=== PATIENT | female | born 1990 | race African-American/Black ===

== ENCOUNTER 2019-04-30 00:35 | Emergency (ER) | payer OTHER, SELFPAY ==
[2019-04-30 00:40] VITALS: BP 89/65; PULSE 68; RESP 18; TEMP 36.4; O2SAT 97
[2019-04-30] MEDS: POLYMY B/TRIMETH OPHTH PREPACK 1 BOTTLE MISC (01:28)
--- NOTE | 2019-04-30 07:00 | ED.EYEPROB ---
HPI - Eye Problem General Chief complaint: Eye Problems Stated complaint: Thinks she has pink eye watery itching Time Seen by Provider: 04/30/19 00:40 Source: patient Mode of arrival: ambulatory Limitations: no limitations History of Present Illness HPI Narrative: 28F nonsmoker without medical problems presents with a day of gradually worsening R eye redness with minimal discharge. She denies any injury or obvious foreign body. She denies blurry vision or eye pain. She has some redness and watering. She feels like she has something in her eye and her thought he saw an eyelash. She's had typical URI symptoms with runny nose, sneezing, and some cough. She does not wear contacts. chief complaint: eye redness Onset (ago): hour(s) Onset description: gradual Duration: constant Location: right eye Eye Symptoms: redness, foreign body sensation, itching and discharge Place: home Mechanism: none Severity: mild Context: recent URI Associated symptoms: rhinorrhea Treatments Prior to Arrival: none Related Data Patient tetanus UTD: Yes Review of Systems Constitutional Denies chills, Denies fever(s), Denies lethargy and Denies weakness Eyes Denies change in vision, Reports eye discharge, Reports irritation and Denies loss of vision ENT Ears, Nose, Mouth, and Throat: Denies change in voice, Reports nasal congestion, Denies neck pain and Denies sore throat Cardiovascular Denies chest pain, Denies irregular heart rhythm, Denies lightheadedness, Denies palpitations, Denies dyspnea, Denies dyspnea on exertion and Denies orthopnea Respiratory Denies cough, Denies dyspnea, Denies dyspnea on exertion and Denies wheezing Gastrointestinal Gastrointestinal: Denies abdominal pain, Denies change in bowel habits, Denies diarrhea, Denies nausea and Denies vomiting Genitourinary Denies hematuria, Denies flank pain, Denies urinary incontinence and Denies urinary urgency Musculoskeletal Denies neck pain Integumentary/Breasts Denies pruritus, Denies erythema, Denies rash and Denies wounds Neurologic Denies confusion, Denies loss of vision and Denies weakness Psychiatric Denies anxiety, Denies confusion, Denies depression, Denies homicidal ideation and Denies suicidal ideation Endocrine Denies palpitations Hematologic/Lymphatic Denies easy bruising Allergic/Immunologic Denies wheezing [facility] Social History Smoking Status: Never smoker Social History Smoking Status: Never smoker Exam Narrative Exam Narrative: GEN: AOx3 and in mild distress EYES: Pupils are equal, round, and reactive to light and accommodation. Extraoccular muscles are intact bilaterally. Visual acuity noted from nursing chart. Minimal R eye injection, minimal exudate. Viewed under rowan lamp, no FB, upper lid everted. Viewed under UV, no dye uptake. CHEST: Lungs are clear to auscultation bilaterally and free of wheezes, rales, or rhonchi. Heart rate is regular rhythm, there are no murmurs, clicks, rubs, or gallops. There is no chest wall tenderness. ABD: Abdomen is soft and nontender. There is no guarding or rebound. Bowel sounds are normal in all 4 quadrants. There is no mass or organomegaly. EXT: Full painless ROM of all extremities with no loss of sensation or strength. SKIN: Warm, pink, and dry. No erythema or rash Initial Vital Signs Initial Vital Signs: Vital Signs Temperature 97.6 F 04/30/19 00:40 Pulse Rate 68 04/30/19 00:40 Respiratory Rate 18 04/30/19 00:40 Blood Pressure 89/65 L 04/30/19 00:40 Pulse Oximetry 97 04/30/19 00:40 Course Orders Ordered: Discontinued Medications Polymyxin/Trimethoprim Sulfate (Polytrim Prepack) 1 bottle MISC SEEINSTR ONE Stop: 04/30/19 01:25 Last Admin: 04/30/19 01:28 Dose: 1 bottle Vital Signs - 8 hr 04/30/19 00:40 Temperature 97.6 F Pulse Rate 68 Respiratory Rate 18 Blood Pressure 89/65 L Pulse Oximetry 97 Discharge Plan Departure Patient Disposition: Home Clinical Impression: Conjunctivitis Qualifiers: Conjunctivitis type: acute Acute conjunctivitis type: unspecified Laterality: right Qualified Code(s): H10.31 - Unspecified acute conjunctivitis, right eye Discharge Date/Time: 04/30/19 01:28 Interventions: ED Discharge Assessment Last Done: 04/30/19 01:28 Instructions: DI for Conjunctivitis Activity Restrictions/Additional Instructions: *You have been diagnosed with [acute conjunctivitis] *What to do: *Take medications as directed *Follow up with your primary care provider in 2-3 days, call for an appointment. Let them know you were seen in the Emergency Department and that we ask that you be seen in follow up *Return to ER if you should have any new, worsening or concerning symptoms Referrals: Vincent Garay MD [Physician] -
== END 2019-04-30 01:28 | disposition home or self-care (01) ==
PROVIDERS: Emergency Provider Emergency Medicine
DX: H10.31 Unspecified acute conjunctivitis, right eye (principal)
CPT/HCPCS: 99283

== ENCOUNTER 2019-05-03 05:23 | Emergency (ER) | payer OTHER, SELFPAY ==
[2019-05-03 05:26] VITALS: BP 115/63; PULSE 72; RESP 18; TEMP 36.4; O2SAT 99; BMI 21.0
--- NOTE | 2019-05-03 05:43 | ED_ITS ---
HPI - Headache General Chief Complaint: Headache Stated Complaint: vomiting/ headache left side Time Seen by Provider: 05/03/19 05:24 Source: patient Mode of arrival: ambulatory Limitations: no limitations History of Present Illness HPI Narrative: Patient is a 28-year-old female. Seen here in the emergency department a couple days ago for right-sided conjunctivitis. She returns today for left-sided headache. She states she has a history of headaches. States this feels like prior headache. Was a gradual onset started last evening and worsened this morning. No fevers. No neck pain. She states she gets headaches like this approximately 2 times a year. States she has not had to come to the emergency department for headache like this in several years. Has taken Tylenol for prior to arrival Related Data Allergies Allergy/AdvReac Type Severity Reaction Status Date / Time amoxicillin Allergy Verified 05/03/19 05:37 Penicillins Allergy Verified 05/03/19 05:37 Review of Systems Constitutional Denies fever(s) and Reports headache(s) Eyes Reports blurry vision and Reports photophobia ENT Ears, Nose, Mouth, and Throat: Denies vertigo, Denies dizziness, Denies facial pain, Reports headache(s) and Denies neck pain Cardiovascular Denies chest pain and Denies dyspnea Respiratory Denies dyspnea Gastrointestinal Gastrointestinal: Denies abdominal pain Genitourinary Denies dysuria Musculoskeletal Denies myalgias, Denies arthralgias and Denies neck pain Integumentary/Breasts Denies lesions and Denies rash Neurologic Denies vertigo, Denies dizziness and Reports headache(s) Hematologic/Lymphatic Denies easy bleeding and Denies easy bruising [facility] Medical History Migraines (Acute) Social History Smoking Status: Never smoker Social History Smoking Status: Never smoker Exam Initial Vital Signs Initial Vital Signs: Vital Signs Temperature 97.6 F 05/03/19 05:26 Pulse Rate 72 05/03/19 05:26 Respiratory Rate 18 05/03/19 05:26 Blood Pressure 115/63 05/03/19 05:26 Pulse Oximetry 99 05/03/19 05:26 Const General: cooperative, well developed, well groomed and No acute distress Orientation: alert, awake and oriented x3 HENMT Head: normal to inspection and normocephalic Ears: hearing grossly normal bilaterally Nose: external nose normal Face and sinus: normal facial exam Eyes Pupils: PERRL EOM: EOM intact bilaterally Resp Effort & Inspection: normal respiratory effort Auscultation: clear to auscultation bilaterally Cardio Rate: regular rate Rhythm: regular rhythm Pulses: radial pulses present GI Inspection: non-distended Palpation: soft Skin Lesions: no lesions Rashes: no rashes Neuro General: alert, awake and oriented x3 Cranial Nerves: CN's II-XI intact bilaterally Cognition: normal cognition Speech: speech normal Motor: muscle tone normal throughout Sensory Exam: no sensory deficits noted Extrem General: normal to inspection and capillary refill normal Psych Appearance: grossly normal and well kempt Scores [facility] [place] coma scale eye opening: Spontaneous [place] coma scale verbal response: Orientated [place] coma scale motor response: Obey commands Andriy coma scale total score: 15 Course Orders Ordered: Discontinued Medications Diphenhydramine HCl (Benadryl) 25 mg IV NOW ONE Stop: 05/03/19 05:45 Last Admin: 05/03/19 05:58 Dose: 25 mg Sodium Chloride (Normal Saline 0.9%) 1,000 mls @ 1,000 mls/hr IV BOLUS ONE Stop: 05/03/19 06:43 Last Infusion: 05/03/19 06:48 Dose: 0 mls/hr Admin: 05/03/19 05:58 Dose: 1,000 mls/hr Metoclopramide HCl (Reglan) 10 mg IV NOW ONE Stop: 05/03/19 05:45 Last Admin: 05/03/19 05:59 Dose: 10 mg Vital Signs - 8 hr 05/03/19 05:26 Temperature 97.6 F Pulse Rate 72 Respiratory Rate 18 Blood Pressure 115/63 Pulse Oximetry 99 MDM - Headache MDM Narrative Medical decision making narrative: Patient reports complete resolution of symptoms after IV medications here in the emergency department. Patient states that she feels like she can go home. Low suspicion for meningitis, low suspicion for ICH. Will hold on any radiologic studies for now. Patient was given return precautions and follow-up instructions. She expressed understanding and agreement with plan. Discharge Plan Departure Patient Disposition: Home Clinical Impression: Migraine Qualifiers: Migraine type: unspecified Status migrainosus presence: without status migrainosus Intractability: not intractable Qualified Code(s): G43.909 - Migraine, unspecified, not intractable, without status migrainosus Instructions: DI for Migraine Activity Restrictions/Additional Instructions: Recommend you contact your primary care doctor tomorrow for a follow-up. You can continue to breast-feed like normal. Return to the emergency department for any new or worsening symptoms
[2019-05-03] MEDS: SODIUM CHLORIDE 0.9% 1,000 ML 1000 ML IV (05:58)
[2019-05-03] MEDS: diphenhydrAMINE 50 MG/ML VIAL 25 MG IV (05:58)
[2019-05-03] MEDS: METOCLOPRAMIDE 10 MG/2 ML INJ IV (05:59)
[2019-05-03 07:00] VITALS: BP 90/51; PULSE 56; RESP 14; O2SAT 97
== END 2019-05-03 07:01 | disposition home or self-care (01) ==
PROVIDERS: Emergency Provider Emergency Medicine
DX: G43.909 Migraine, unspecified, not intractable, without status migrainosus (principal)
CPT/HCPCS: 36591; 96361; 96374; 96375; 99283; 99284; J1200; J2765

== ENCOUNTER 2019-07-11 03:34 | Emergency (ER) | payer OTHER, SELFPAY ==
[2019-07-11 03:46] VITALS: BP 103/62; PULSE 64; RESP 18; TEMP 36.6; O2SAT 98
--- NOTE | 2019-07-11 03:50 | DI.RAD.S_ITS ---
PROCEDURE: XR FOREARM RT 2V INDICATIONS: right arm cought in car door TECHNIQUE: 2 views of the forearm were acquired. COMPARISON: None. FINDINGS: Bones: No fractures or dislocations. No suspicious bony lesions. Soft tissues: No suspicious soft tissue calcifications or masses. IMPRESSION: Right radius and ulna without acute radiographic abnormalities. No significant discrepancies from emergency physician's preliminary interpretation. Dictated by: Baljit Schilling M.D. on 07/11/2019 at 6:42 Approved by: Baljit Schilling M.D. on 07/11/2019 at 6:43
--- NOTE | 2019-07-11 03:57 | ED_ITS ---
HPI - General Adult General Chief complaint: Extremity Injury, Upper Stated complaint: thinks right arm broken, got slammed in car door Time Seen by Provider: 07/11/19 03:38 Source: patient Mode of arrival: ambulatory Limitations: no limitations History of Present Illness HPI narrative: 28-year-old female here for evaluation of right forearm injury. States this evening she had her right forearm shut in a car door. She is concerned about a fracture. Related Data Allergies Allergy/AdvReac Type Severity Reaction Status Date / Time amoxicillin Allergy Verified 05/03/19 05:37 Penicillins Allergy Verified 05/03/19 05:37 Review of Systems Constitutional Constitutional: Denies fever(s) Musculoskeletal Musculoskeletal: Denies tingling Comments: Right forearm injury Integumentary/Breasts Comments: Bruising to the right forearm Neurologic Neurologic: Denies tingling Hematologic/Lymphatic Hematologic/Lymphatic: Denies easy bleeding and Denies easy bruising PFSH Medical History Migraines (Acute) Social History Smoking Status: Never smoker Social History Smoking Status: Never smoker Exam Initial Vital Signs Initial Vital Signs: Vital Signs Temperature 98 F 07/11/19 03:46 Pulse Rate 64 07/11/19 03:46 Respiratory Rate 18 07/11/19 03:46 Blood Pressure 103/62 07/11/19 03:46 Pulse Oximetry 98 07/11/19 03:46 Const General: cooperative, comfortable and well developed Orientation: alert, awake and oriented x3 Cardio Pulses: radial pulses present on the right Skin Other: Bruising on the dorsum of the right forearm midshaft Neuro General: alert and awake Cognition: normal cognition Speech: speech normal Extrem Other: Does have tenderness to palpation with pronation and supination however can flex and extend at the wrist and flex and extend at the elbow. Psych Appearance: grossly normal and well kempt Course Orders Ordered: ED Orders 07/11/19 03:50 XR forearm RT 2V Stat Vital Signs Vital signs: Vital Signs - 8 hr 07/11/19 03:46 Temperature 98 F Pulse Rate 64 Respiratory Rate 18 Blood Pressure 103/62 Pulse Oximetry 98 Medical Decision Making Imaging Data X-ray forearm: Attestation: I personally reviewed and interpreted this imaging study as follows: My impression: No fractures, no dislocations, MDM Narrative Medical decision making narrative: Patient is bruising the right form however no fractures on the x-rays. We discussed treatment. No further workup needed in the emergency department. Discharge Plan Departure Patient Disposition: Home Clinical Impression: Contusion of forearm, right Qualifiers: Encounter type: initial encounter Qualified Code(s): S50.11XA - Contusion of right forearm, initial encounter Instructions: Contusion Activity Restrictions/Additional Instructions: You can take Tylenol and/or ibuprofen for any discomfort. Would recommend that you place ice over your form to help with the swelling. Expect some bruising and discomfort over the next couple days. There were no fractures on the x-r ays. Contact your primary care provider for follow-up.
== END 2019-07-11 04:25 | disposition home or self-care (01) ==
PROVIDERS: Emergency Provider Emergency Medicine
DX: S50.11XA Contusion of right forearm, initial encounter (principal)
CPT/HCPCS: 73090; 99282; 99283

== ENCOUNTER 2019-09-25 07:13 | Emergency (ER) | payer OTHER, SELFPAY ==
[2019-09-25 07:22] VITALS: BP 110/69; PULSE 75; RESP 18; TEMP 36.8; O2SAT 100; BMI 21.0
--- NOTE | 2019-09-25 07:31 | ED.HA ---
HPI - Headache General Chief Complaint: Headache Stated Complaint: CHILLS,MIGRANE,VOMITING Time Seen by Provider: 09/25/19 07:20 Source: patient and old records reviewed Mode of arrival: Family Vehicle Limitations: no limitations History of Present Illness HPI Narrative: Patient is a 28-year-old female with history of migraines presenting with migraine. She said this was started about 3:00 a.m.. She took 2 Tylenol it did seem to help. She vomited once. She is sensitive to light no neuro deficits, she denies any fevers she does feel like she is chilled. This feels like a typical migraine for her. Complaint: migraine Onset (ago): hour(s) (4) Severity: similar to previous episodes Exacerbating factors: light and noise Context: occurred at rest Related Data Previous Rx's Medication Instructions Recorded ondansetron 4 mg PO Q8H PRN #10 tab 09/25/19 Allergies Allergy/AdvReac Type Severity Reaction Status Date / Time amoxicillin Allergy Verified 05/03/19 05:37 Penicillins Allergy Verified 05/03/19 05:37 Review of Systems Review of Systems ROS Unobtainable: All systems reviewed & are unremarkable except as noted in HPI and below Constitutional Constitutional: Denies chills, Denies fever(s), Reports headache(s), Denies lethargy and Denies weakness Eyes Eyes: Denies change in vision, Denies eye discharge, Denies irritation, Denies loss of vision and Reports photophobia ENT Ears, Nose, Mouth, and Throat: Denies change in voice, Reports headache(s), Denies neck pain and Denies sore throat Cardiovascular Cardiovascular: Denies chest pain, Denies irregular heart rhythm, Denies lightheadedness, Denies palpitations, Denies dyspnea, Denies dyspnea on exertion and Denies orthopnea Respiratory Respiratory: Denies cough, Denies dyspnea, Denies dyspnea on exertion and Denies wheezing Gastrointestinal Gastrointestinal: Denies abdominal pain, Denies change in bowel habits, Denies diarrhea, Denies nausea and Denies vomiting Genitourinary Genitourinary: Denies hematuria, Denies flank pain, Denies urinary incontinence and Denies urinary urgency Musculoskeletal Musculoskeletal: Denies neck pain Integumentary/Breasts Skin/Breast: Denies pruritus, Denies erythema, Denies rash and Denies wounds Neurologic Neurologic: Reports headache(s), Denies loss of vision and Denies weakness Endocrine Endocrine: Denies palpitations Allergic/Immunologic Allergic/Immunologic: Denies wheezing Patient History Medical History Migraines (Acute) Social History Smoking Status: Never smoker alcohol intake frequency: 0-2 drinks per day Substance Use Type: does not use Exam Initial Vital Signs Initial Vital Signs: Vital Signs Temperature 98.2 F 09/25/19 07:22 Pulse Rate 75 09/25/19 07:22 Respiratory Rate 18 09/25/19 07:22 Blood Pressure 110/69 09/25/19 07:22 Pulse Oximetry 100 09/25/19 07:22 GENERAL: Alert female covering her face with a pillow appears in pain and in no acute distress. HEENT: Head atraumatic,EOMI, pupils reactive, face symmetric, moist mucous membranes CARDIOVASCULAR: Regular rate and rhythm without murmurs, rubs or gallops. RESPIRATORY: Breath sounds equal bilaterally, no wheezes rales or rhonchi. ABDOMEN: Soft, nontender. Normoactive bowel sounds all 4 quadrants. No guarding or rebound. EXTREMITIES: Normal range of motion, no clubbing or edema. Neurovascularly intact NEUROLOGICAL: Alert and oriented x4.Normal gait and speech. Cranial nerves II through XII grossly intact. SKIN: Warm, dry, no laceration, no petechiae, no rashes or lesions. Course Orders Ordered: Discontinued Medications Ketorolac Tromethamine (Toradol) 30 mg IM NOW ONE Stop: 09/25/19 07:30 Last Admin: 09/25/19 07:42 Dose: 30 mg Documented by: LETITIA Ondansetron HCl (Zofran Odt) 4 mg SL NOW ONE Stop: 09/25/19 07:30 Last Admin: 09/25/19 07:43 Dose: 4 mg Documented by: LETITIA Vital Signs Vital signs: Vital Signs - 8 hr 09/25/19 07:22 09/25/19 08:30 Temperature 98.2 F Pulse Rate 75 64 Respiratory Rate 18 16 Blood Pressure 110/69 Blood Pressure [Left Arm] 101/70 Pulse Oximetry 100 100 MDM - Headache MDM Narrative Medical decision making narrative: Patient was offered IV however she did not want the IV she was agreeable to a shot of Toradol and oral Zofran. Feeling much better after Toradol and Zofran. Tolerating oral fluids feels ready and able to go home. Discharge Plan Departure Patient Disposition: Home Clinical Impression: Headache Qualifiers: Headache type: unspecified Headache chronicity pattern: unspecified pattern Intractability: not intractable Qualified Code(s): R51 - Headache Discharge Date/Time: 09/25/19 09:11 Instructions: DI for Migraine Activity Restrictions/Additional Instructions: *You have been diagnosed with migraine headache *What to do: Rest, increase fluids as tolerated *Continue to take medications as directed Zofran 4 mg every 8 hours if needed for nausea or vomiting Ibuprofen 800 mg every 8 hours if needed for pain do not take until 3:30pm Tylenol 650 mg every 4-6 hours if needed for [id number] pain *Follow up with your primary care provider in 2-3 days *Return to ER if you should have worsening headache blurry vision persistent vomiting weakness or any new, worsening or concerning symptoms Prescriptions: New ondansetron 4 mg tablet,disintegrating 4 mg PO Q8H PRN (Reason: nausea and vomiting) Qty: 10 RF: 0
[2019-09-25] MEDS: KETOROLAC 60 MG/2 ML VIAL 30 MG IM (07:42)
[2019-09-25] MEDS: ONDANSETRON 4 MG ODT SL (07:43)
[2019-09-25 08:30] VITALS: BP 101/70; PULSE 64; RESP 16; O2SAT 100
--- NOTE | 2019-09-25 09:09 | CM.MNRNOTE ---
tolerated oral po challenge. feels great and is ready to be discharged.
== END 2019-09-25 09:11 | disposition home or self-care (01) ==
PROVIDERS: Emergency Provider Emergency Medicine
DX: R51 Headache (principal)
CPT/HCPCS: 96372; 99282; 99283; J1885

== ENCOUNTER 2019-11-01 14:14 | Emergency (ER) | payer OTHER, SELFPAY ==
[2019-11-01 14:25] VITALS: BP 96/61; PULSE 65; RESP 15; TEMP 36.9; O2SAT 99; BMI 21.0
--- NOTE | 2019-11-01 15:02 | ED.DENTAL ---
HPI - Dental/Oral <Enrico SevillaVIANCA - Last Filed: 11/01/19 16:57> General Chief complaint: Dental/Oral Stated complaint: lt bottom tooth/ ear pain Time Seen by Provider: 11/01/19 14:47 Source: patient Mode of arrival: Ambulatory Limitations: no limitations History of Present Illness HPI Narrative: This is a 29-year-old female, nonsmoker, who presents to ED with her significant other and 2 young children with chief complain of left lower toothache for 3 days and left ear pain for 2 days. Patient denies fever, chills, nausea or vomiting. Patient denies drainage from ear or tooth, swelling in her gums or face. 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 She has been taking Tylenol 500 mg about 3 times a day which helps with her pain. Patient reports eating/during increase her pain. Patient denies recent cold symptoms or cough. Last LMP about a year ago and patient is currently breast-feeding and has no concerns for at this time. Related Data Previous Rx's Medication Instructions Recorded ondansetron 4 mg PO Q8H PRN #10 tab 09/25/19 Allergies Allergy/AdvReac Type Severity Reaction Status Date / Time amoxicillin Allergy Verified 05/03/19 05:37 Penicillins Allergy Verified 05/03/19 05:37 Review of Systems <Enrioc SevillaVIANCA - Last Filed: 11/01/19 16:57> Review of Systems Narrative: General: Denies fever, chills, fatigue, malaise, sweats. HEENT: Denies sinus pain, (+) L ear pain, (+) L lower toothache, (-) sore throat, (-)difficulty swallowing. Respiratory: Denies dyspnea, cough, wheezing, hemoptysis, sputum. Cardiovascular: Denies chest pain, palpitations, orthopnea, edema. Gastrointestinal: Denies nausea, vomiting, abdominal pain, diarrhea, constipation, melena. : Denies dysuria, frequency, incontinence, hematuria, urinary retention. Musculoskeletal: Denies weakness, joint pain or bony pain. Skin: Denies rash, skin lesions, or other. Neurologic: Denies weakness, headache, numbness, change in speech, confusion, seizures, incoordination. Psychiatric: No concerning psychosocial issues. 12-point review of systems is negative except for those stated above. Patient History <VIANCA Ramey - Last Filed: 11/01/19 16:57> Medical History Asthma (Acute) Migraines (Acute) Social History Smoking Status: Never smoker Smoking Status: Never smoker alcohol intake frequency: 0-2 drinks per day Substance Use Type: does not use Exam <VIANCA Ramey - Last Filed: 11/01/19 16:57> Narrative Exam Narrative: General appearance: well developed, well nourished, in no acute distress. Head: normocephalic, atraumatic, no scalp lesions, non-tender. ENT: Bilateral auditory canals and tympanic membranes clear. Hearing grossly intact. Nose without bleeding, purulent discharge, septal hematoma or deviation. Turbinate without erythema or swelling. Facial sinuses nontender to palpate. Mucous membrane moist, no mucosal lesion. Throat without erythema, tonsillar hypertrophy or exudate. Uvula in midline, airway patent. Gums without erythema, swelling, discharge or dental caries noted. Neck/Thyroid: neck supple, full range of motion, no visible masses or meningeal signs. No JVD, non-tender without lymphadenopathy. Skin: no suspicious rashes, lesions over visible areas. Warm and dry and appropriate color for ethnicity. Heart: no clubbing, no cyanosis, no edema. S1 and S2 normal. RRR w/o murmurs, clicks, or bruits. Lungs: Breathing even and unlabored. Lung sounds clear to auscultate in all lobes. No stridor. No accessory muscles used. Able to speak in full sentences. Chest: normal shape and expansion. Abdomen: non-obese, non-distended. Neurologic: alert and oriented. Cognitive exam, [employer]UR[employer] and PNS grossly intact on informal exam. Psych: good eye contact, normal affect. Initial Vital Signs Initial Vital Signs: Vital Signs Temperature 98.4 F 11/01/19 14:25 Pulse Rate 65 11/01/19 14:25 Respiratory Rate 15 11/01/19 14:25 Blood Pressure 96/61 11/01/19 14:25 Pulse Oximetry 99 11/01/19 14:25 <Cristina Hernandez DO - Last Filed: 11/01/19 17:54> Initial Vital Signs Initial Vital Signs: Vital Signs Temperature 98.4 F 11/01/19 14:25 Pulse Rate 65 11/01/19 14:25 Respiratory Rate 15 11/01/19 14:25 Blood Pressure 96/61 11/01/19 14:25 Pulse Oximetry 99 11/01/19 14:25 Scores <Enrico ArmandoVIANCA campa - Last Filed: 11/01/19 16:57> GCS [place] coma scale eye opening: Spontaneous [place] coma scale verbal response: Orientated [place] coma scale motor response: Obey commands [place] coma scale total score: 15 Course <Enrico ArmandoVIANCA campa - Last Filed: 11/01/19 16:57> Vital Signs Vital signs: Vital Signs - 8 hr 11/01/19 14:25 Temperature 98.4 F Pulse Rate 65 Respiratory Rate 15 Blood Pressure 96/61 Pulse Oximetry 99 <Cristina Hernandez DO - Last Filed: 11/01/19 17:54> Vital Signs Vital signs: Vital Signs - 8 hr 11/01/19 14:25 Temperature 98.4 F Pulse Rate 65 Respiratory Rate 15 Blood Pressure 96/61 Pulse Oximetry 99 MDM - Dental/Oral <Enrico SevillaVIANCA - Last Filed: 11/01/19 16:57> Differential Diagnosis Differential diagnosis: Likely gingival abscess, dental caries, toothache, dental abscess, fracture of tooth and other (Otitis media) Medical Records Attestation: I reviewed the patient's medical records. [facility] Narrative Medical decision making narrative: This is a 29-year-old female who presents to ED with 2-3 days duration of left lower toothache and ear pain. Patient has been self-medicated Tylenol 500 mg intermittently which helps with pain. Patient denies constitutional symptoms. Patient has a dentist and is aware of work of root canal on affected tooth is needed but due to financial difficulties this has not begun yet. Physical exam is not consistent with otitis media or dental abscess. No dental caries noticed, no lymphadenopathy. Patient was advised to take [id number] Tylenol up to 4000 mg in 24 hour period and add ibuprofen for discomfort. Advised to follow up with dentist and [facility] clinic information in [place] has been provided and to speak with her dentist. Return precautions were discussed with the patient and no antibiotic medication has been prescribed at this time. Patient verbalized understanding and agrees with the treatment plan. Discharge Plan Departure Patient Disposition: Home Clinical Impression: Toothache, Ear pain, left Discharge Date/Time: 11/01/19 15:29 Instructions: DI for Dental Pain, DI for Ear Pain-Adult Activity Restrictions/Additional Instructions: You have been diagnosed with [left-sided lower dental pain and ear aches. Physical exam does not appears to be you're having infection in ear or tooth]. What to do: *Take your medications as directed. You can take Tylenol up to 4000 mg in 24 hour period. Ibuprofen 400-600 mg 3 times a day with food. Please contact your dentist or [facility] to follow up. [facility] Dental clinic phone [phone] and address is [address] [place] [address] [address], [place] [address]. *Follow up with your primary care provider in 2-3 days, call for an appointment. Let them know you were seen in the ED and that we asked you to be seen in follow up. *Return to ED if you have any new, worsening, or concerning symptoms, such as [fever, worsening pain, drainage from ear or tooth, redness/swelling/warmth spreading to her face, unable to tolerate fluids, breathing difficulty or any acute concerns]. Prescriptions: No Action ondansetron 4 mg tablet,disintegrating 4 mg PO Q8H PRN (Reason: nausea and vomiting) Qty: 10 RF: 0 Referrals: Myranda Kim MD [Primary Care Provider] -
== END 2019-11-01 15:29 | disposition home or self-care (01) ==
PROVIDERS: Emergency Provider Nurse Practitioner Family; PCP Family Medicine
DX: K08.89 Other specified disorders of teeth and supporting structures (principal); H92.02 Otalgia, left ear
CPT/HCPCS: 99281; 99282

== ENCOUNTER 2019-11-14 15:50 | Emergency (ER) | payer OTHER, SELFPAY ==
[2019-11-14 15:59] VITALS: BP 109/64; PULSE 67; RESP 12; TEMP 36.7; O2SAT 96
[2019-11-14 16:58] LABS: Bacteria Urine None Seen; RBC Urine None Seen (0-5/HPF); WBC Urine None Seen (0-5/HPF)
[2019-11-14 17:18] LABS: Culture Indicated Urine Cult Not Indicated; Squamous Epithelial Cell Urine 10-30 /HPF (0-5/HPF)
--- NOTE | 2019-11-14 18:15 | ED.RECABL ---
HPI - Recheck/Abnormal Lab/Rx <Enrico SevillaVIANCA - Last Filed: 11/15/19 05:03> General Chief Complaint: Recheck/Abnormal Lab/Rx Stated Complaint: States mastitis,breast pain Time Seen by Provider: 11/14/19 17:58 Source: patient Mode of arrival: Ambulatory Limitations: no limitations History of Present Illness HPI narrative: This is a 29-year-old female, nonsmoker, who presents to ED with her spouse and 2 young children with chief complain of right breast pain. Patient states she felt warmth on her breast 2 days ago and has been feeling sweaty and hot. Today patient felt discomfort in right breast at 3:00 a.m. region and very tender to palpate. Patient reports she had a blister on her right nipple prior to having R breast warmth and pain and now it has resolved. Patient states she has been nursing her [id number] child and there is no difficulty expressing milk. Denies purulent or unusual nipple discharge. Patient denies chills, nausea or vomiting. Related Data Previous Rx's Medication Instructions Recorded ondansetron 4 mg PO Q8H PRN #10 tab 09/25/19 cephalexin [Keflex] 500 mg PO Q6H 10 Days #40 cap 11/14/19 Allergies Allergy/AdvReac Type Severity Reaction Status Date / Time amoxicillin Allergy Verified 05/03/19 05:37 Penicillins Allergy Verified 05/03/19 05:37 Review of Systems <Enrico SevillaVIANCA - Last Filed: 11/15/19 05:03> Review of Systems Narrative: General: Denies fever, chills, fatigue, malaise, (+) sweats and (+) feeling hot. HEENT: Denies sinus pain, ear pain, sore throat, difficulty swallowing, dizziness. Respiratory: Denies dyspnea, cough, wheezing, hemoptysis, sputum. Cardiovascular: Denies chest pain, palpitations, orthopnea, edema. Gastrointestinal: Denies nausea, vomiting, abdominal pain, diarrhea, constipation, melena. : Denies dysuria, frequency, incontinence, hematuria, urinary retention. Musculoskeletal: Denies weakness, joint pain or bony pain. Skin: See HPI Neurologic: Denies weakness, headache, numbness, change in speech, confusion, seizures, incoordination. Psychiatric: No concerning psychosocial issues. 12-point review of systems is negative except for those stated above. Patient History <VIANCA Ramey - Last Filed: 11/15/19 05:03> Medical History Asthma (Acute) Migraines (Acute) Social History Smoking Status: Never smoker Smoking Status: Never smoker alcohol intake frequency: 0-2 drinks per day Substance Use Type: does not use Exam <VIANCA Ramey - Last Filed: 11/15/19 05:03> Narrative Exam Narrative: General appearance: well developed, well nourished, in no acute distress. Head: normocephalic, atraumatic, no scalp lesions, non-tender. ENT: Hearing grossly intact. Nose without bleeding, purulent discharge, septal hematoma or deviation. Turbinate without erythema or swelling. Facial sinuses nontender to palpate. Mucous membrane moist, no mucosal lesion. Throat without erythema, tonsillar hypertrophy or exudate. Uvula in midline, airway patent. Neck/Thyroid: neck supple, full range of motion, no visible masses or meningeal signs. No JVD, non-tender without lymphadenopathy. Skin: Mild warmth to touch to right breast. No significant redness noted. Small nodules palpated on at 3 o'clock on R breast which is painful to palpate. no suspicious rashes, lesions over other visible areas. Warm and dry and appropriate color for ethnicity. Heart: no clubbing, no cyanosis, no edema. S1 and S2 normal. RRR w/o murmurs, clicks, or bruits. Lungs: Breathing even and unlabored. No stridor. No accessory muscles used. Able to speak in full sentences. Chest: normal shape and expansion. Abdomen: non-obese, non-distended. Neurologic: alert and oriented. Cognitive exam, [employer]OM[employer]CH and PNS grossly intact on informal exam. Psych: good eye contact, normal affect. Initial Vital Signs Initial Vital Signs: Vital Signs Temperature 98.1 F 11/14/19 15:59 Pulse Rate 67 11/14/19 15:59 Respiratory Rate 12 11/14/19 15:59 Blood Pressure 109/64 11/14/19 15:59 Pulse Oximetry 96 11/14/19 15:59 <Cristina Hernandez DO - Last Filed: 11/16/19 12:00> Initial Vital Signs Initial Vital Signs: Vital Signs Temperature 98.1 F 11/14/19 15:59 Pulse Rate 67 11/14/19 15:59 Respiratory Rate 12 11/14/19 15:59 Blood Pressure 109/64 11/14/19 15:59 Pulse Oximetry 96 11/14/19 15:59 Scores <VIANCA Ramey - Last Filed: 11/15/19 05:03> GCS [place] coma scale eye opening: Spontaneous [place] coma scale verbal response: Orientated [place] coma scale motor response: Obey commands [place] coma scale total score: 15 Course <VIANCA Ramey - Last Filed: 11/15/19 05:03> Orders Ordered: Discontinued Medications Cephalexin HCl (Keflex) 500 mg PO NOW ONE Stop: 11/14/19 18:14 Last Admin: 11/14/19 18:44 Dose: 500 mg Documented by: LOTUS Vital Signs Vital signs: Vital Signs - 8 hr 11/14/19 15:59 Temperature 98.1 F Pulse Rate 67 Respiratory Rate 12 Blood Pressure 109/64 Pulse Oximetry 96 <Cristina Hernandez DO - Last Filed: 11/16/19 12:00> Orders Ordered: Discontinued Medications Cephalexin HCl (Keflex) 500 mg PO NOW ONE Stop: 11/14/19 18:14 Last Admin: 11/14/19 18:44 Dose: 500 mg Documented by: LOTUS Vital Signs Vital signs: Vital Signs - 8 hr 11/14/19 15:59 Temperature 98.1 F Pulse Rate 67 Respiratory Rate 12 Blood Pressure 109/64 Pulse Oximetry 96 MDM - Recheck/Abnormal Lab/Rx <VIANCA Ramey - Last Filed: 11/15/19 05:03> Differential Diagnosis Differential diagnosis: Likely other (Mastitis, breast abscess) Medical Records Attestation: I reviewed the patient's medical records. Lab Data Attestation: I reviewed the patient's lab results. Labs: Lab Results 11/14/19 Range/Units 16:56 Urine RBC None seen (0-5/HPF) Urine WBC None seen (0-5/HPF) Ur Squamous Epith Cells 10-30 /hpf H (0-5/HPF) Urine Bacteria None seen (None) Ur Culture Indicated? Cult not indicated Point of Care Testing Test Results Negative Urine Dip Bedside Urine Glucose Negative Bedside Urine Bilirubin - Negative Bedside Urine Ketone - Negative Urine Specific [place] 1.025 Bedside Urine Occult Blood - Negative Bedside Urine pH 6.0 Bedside Urine Protein +/- 15 Bedside Urine Urobilinogen +/- 1mg Bedside Urine Nitrite - Negative Bedside Urine Leukocytes - Negative Esterase MDM Narrative Medical decision making narrative: This is a 29 year female who presents to ED with right breast warmth for 2 days and medial aspect discomfort for a day. Patient currently nursing her 13-year-old daughter. Reports she had blister on her nipple several days before breast pain started. The patient reports subjective fever, denies chills, nausea or vomiting. Patient denies unusual, purulent, bloody nipple discharge. Patient does has history of mastitis about a 1 year ago which was much worse than. Physical exam is not entirely consistent with mastitis but possible early mastitis. Patient afebrile with stable vital signs in ED. Patient was medicated with Keflex due to her allergies to amoxicillin and penicillin and with current nursing. Patient advised to use warm pack, increasing frequency of feeding, hydration, and to take [id number] Tylenol Motrin as needed. Advised to complete a course of antibiotic medication for 10 day q.i.d. dose and to follow-up with her primary care physician in 2-3 days for recheck. Return precautions including but not limited to breast abscess with patient and verbalized understanding. Patient agrees with the treatment plan. <Cristina Hernandez, - Last Filed: 11/16/19 12:00> Lab Data Labs: Lab Results 11/14/19 Range/Units 16:56 Urine RBC None seen (0-5/HPF) Urine WBC None seen (0-5/HPF) Ur Squamous Epith Cells 10-30 /hpf H (0-5/HPF) Urine Bacteria None seen (None) Ur Culture Indicated? Cult not indicated Point of Care Testing Test Results Negative Urine Dip Bedside Urine Glucose Negative Bedside Urine Bilirubin - Negative Bedside Urine Ketone - Negative Urine Specific [place] 1.025 Bedside Urine Occult Blood - Negative Bedside Urine pH 6.0 Bedside Urine Protein +/- 15 Bedside Urine Urobilinogen +/- 1mg Bedside Urine Nitrite - Negative Bedside Urine Leukocytes - Negative Esterase Discharge Plan Departure Patient Disposition: Home Clinical Impression: Mastitis Discharge Date/Time: 11/14/19 19:09 Activity Restrictions/Additional Instructions: You have been diagnosed with [early mastitis. You were treated with Keflex 500 mg while in ED. The urine test was negative for and does not appears to be having an infection today.]. What to do: *Take your medications as directed. Keflex 500 mg 4 times a day for next 10 days. Please use warm pack, hot shower, rest, increase hydration, increase frequency of nursing. *Follow up with your primary care provider in 2-3 days, call for an appointment. If your symptoms not improving after the antibiotic medication, you may need imaging test to rule out breast abscess. Let them know you were seen in the ED and that we asked you to be seen in follow up. *Return to ED if you have any new, worsening, or concerning symptoms, such as [increasing pain, fever, chills, unable to tolerate fluid, breathing difficulty, chest pain, or any acute concerns]. Prescriptions: New cephalexin [Keflex] 500 mg capsule 500 mg PO Q6H 10 Days Qty: 40 RF: 0 No Action ondansetron 4 mg tablet,disintegrating 4 mg PO Q8H PRN (Reason: nausea and vomiting) Qty: 10 RF: 0 Referrals: Myranda Kim MD [Primary Care Provider] -
[2019-11-14] MEDS: cephALEXin 250 MG CAPSULE 500 MG PO (18:44)
[2019-11-14 19:07] VITALS: BP 110/70; PULSE 66; RESP 16; O2SAT 97
== END 2019-11-14 19:09 | disposition home or self-care (01) ==
PROVIDERS: Emergency Medicine; Emergency Provider Nurse Practitioner Family; PCP Family Medicine
DX: N61.0 Mastitis without abscess (principal)
CPT/HCPCS: 81003; 81015; 81025; 99283